=== PATIENT | male | born 1955 | race Caucasian/White ===

== ENCOUNTER 2019-07-02 07:26 | Day surgery (SDC) | payer MEDICARE ==
[2019-07-01 16:58] VITALS: BMI 24.3
[~2019-07-02 07:26] MED LIST: EPINEPHrine 0.3 MG in Ophthalmic Irrigation Solution 500 ML IVP SCH; Fentanyl 100 MCG/2 ML VIAL ONE; Midazolam HCl 2 mg/2 ml Vial ONE; PROPOFOL 20 ML ONE
[2019-07-02] MEDS ORDERED: Cyclopentolate 1% Opth Drop 2 ML BOT ONE (08:00)
[2019-07-02] MEDS ORDERED: Phenylephrine 2.5% Ophth Soln 5 ML BOT ONE (08:00)
--- NOTE | 2019-07-02 12:52 | OP ---
DATE OF PROCEDURE: 07/02/2019 PRINCIPAL PREOPERATIVE DIAGNOSIS: Epiretinal membrane, left eye. POSTOPERATIVE DIAGNOSIS: Epiretinal membrane, left eye. PROCEDURES PERFORMED: 1. 25-gauge pars plana vitrectomy, left eye. 2. Epiretinal membrane/internal limiting membrane removal, left eye. ESTIMATED BLOOD LOSS: None. SPECIMENS REMOVED: None. COMPLICATIONS: None. ANESTHESIA: MAC with retrobulbar block. DESCRIPTION OF PROCEDURE: The patient was identified in the preoperative holding area, where the correct eye being the left eye was marked for surgery. The patient was taken to the operating room, where MAC anesthesia was induced. A retrobulbar block was administered to the left eye. The block consisted of 1:1 ratio of 4% lidocaine and 0.75% Marcaine. Total of 5 mL was administered. The left eye was prepped and draped in the usual sterile ophthalmic fashion for surgery. A wire lid speculum was placed. A standard 25-gauge pars plana vitrectomy platform was fashioned with the trocars placed approximately 4 mm from the limbus. The infusion was noted to be within the vitreous cavity prior to being turned on to an infusion pressure of 30 mmHg. The light pipe Micro vitrector was introduced into the eye under visualization with a [employer] viewing system. A careful core and peripheral shave vitrectomy performed with the assistance of Kenalog. Following vitrectomy, ICG dye was inserted into the eye to stain the internal limiting membrane. Using the [employer] ILM Forceps, an epimacular proliferation/internal limiting membrane removal was performed in a circumferential fashion about the fovea. The peel extended approximately from the fovea circumferentially. Following completion of peeling, the Micro vitrector was re-introduced into the eye to remove any residual vitreous debris. A 360-degree scleral depressed exam of the periphery revealed no defects. The cannulas were sequentially removed, and all sclerotomies were noted to be watertight. Subconjunctival Ancef and Kenalog were injected. The wire lid speculum was removed followed by application of Tobradex ophthalmic ointment and light patch and shield. The patient tolerated the procedure well and was taken to the outpatient recovery area in good condition. Job ID: [id number]
== END 2019-07-02 11:10 | disposition home or self-care (01) ==
LOC: SDC 07:26
PROVIDERS: ATTEND Ophthalmology Retina Specialist
PROC: 08B53ZZ Excision of Left Vitreous, Percutaneous Approach (ICD-10-PCS; principal; 2019-07-02)
PROC: 08NF3ZZ Release Left Retina, Percutaneous Approach (ICD-10-PCS; 2019-07-02)
DX: H35.372 Puckering of macula, left eye (principal); Z79.51 Long term (current) use of inhaled steroids; Z79.899 Other long term (current) drug therapy
CPT/HCPCS: J0171; J2250; J2704; J3010